=== PATIENT | male | born 1955 | race Caucasian/White ===

== ENCOUNTER 2021-09-10 13:15 | Outpatient (CLI) | payer MEDICARE, OTHER, SELFPAY ==
--- NOTE | ~2021-09-10 | XR_ITS ---
EXAMINATION: XR wrist RT min 3V DATE: 09/10/2021 14:01 INDICATION: Right wrist pain. TECHNIQUE: 4 views of right wrist were obtained. COMPARISON: Right wrist radiographs 01/19/2014 FINDINGS: Bone alignment is normal. No fracture. There is severe osteoarthritis of triscaphe joint an d moderate osteoarthritis of first carpometacarpal joint and lunate-capitate joint. There is a loose body in first carpometacarpal joint. IMPRESSION: 1. Polyarticular osteoarthritis. 2. Loose body in first carpometacarpal joint. Reviewed, dictated and finalized at location A. E CARE OCCUPATIONAL THERAPIST
--- NOTE | ~2021-09-10 | XR_ITS ---
XR wrist LT min 3V DATE: 09/10/2021 14:00 INDICATION: Bilateral wrist pain, weakness, poor regulatory assistant TECHNIQUE: 4 views COMPARISON: 01/19/2014 left breast FINDINGS: There is prominent osteoarthritic change at the triscaphe and first carpometacarpal joint. Chondrocalcinosis at the triangular cartilage and wrist. No fracture or dislocation. IMPRESSION: Prominent osteoarthritis at the triscaphe and first carpometacarpal joints Chondrocalcinosis Reviewed, dictated and finalized at location A. SITE COORDINATOR
--- NOTE | ~2021-09-10 | XR_ITS ---
XR chest 2V DATE: 09/10/2021 14:01 INDICATION: Cough and phlegm production for one year. Ex-smoker for 3 years. COPD. TECHNIQUE: 2 views COMPARISON: 09/04/2011 2 view chest FINDINGS: Normal heart size. No hilar or mediastinal enlargement. There is mild aortic tortuosity. Bilateral hyperinflation consistent with COPD. No pulmonary infiltrate or consolidation, pleural effusion or pulmonary vascular congestion or pneumo thorax. Diffuse osteopenia. IMPRESSION: COPD No active cardiopulmonary disease Reviewed, dictated and finalized at location A. YL BLENDER OPERATOR
== END 2021-09-10 13:16 | disposition home or self-care (01) ==
PROVIDERS: PCP Family Medicine; Visit Provider Family Medicine
DX: G62.9 Polyneuropathy, unspecified (principal); M25.532 Pain in left wrist; M25.531 Pain in right wrist; G56.22 Lesion of ulnar nerve, left upper limb; R05.9 Cough, unspecified
CPT/HCPCS: 71046; 73110

== ENCOUNTER 2021-10-03 10:30 | Outpatient (CLI) | payer MEDICARE, OTHER, SELFPAY | END 2021-10-03 10:31 | disposition home or self-care (01) | LOC: CHSCARD 10:32 | PROVIDERS: PCP Family Medicine; Visit Provider Family Medicine | DX: J44.9 Chronic obstructive pulmonary disease, unspecified (principal) | CPT/HCPCS: 94060; 94726; 94729 ==

== ENCOUNTER 2021-10-20 12:30 | Outpatient (CLI) | payer MEDICARE, SELFPAY ==
[2021-10-20 14:12] LABS: SARS-CoV-2 RNA PCR Negative (Negative)
== END 2021-10-20 12:31 | disposition home or self-care (01) ==
LOC: CHSLAB 12:32
PROVIDERS: PCP Family Medicine; Visit Provider Family Medicine
DX: Z20.822 Contact with and (suspected) exposure to COVID-19 (principal)
CPT/HCPCS: C9803; U0003; U0005

== ENCOUNTER 2022-01-20 10:09 | Outpatient (CLI) | payer MEDICARE, OTHER, SELFPAY | END 2022-01-20 10:10 | disposition home or self-care (01) | LOC: CHSOUTPT 10:12 | PROVIDERS: PCP Family Medicine; Visit Provider Specialist | DX: L28.1 Prurigo nodularis (principal) | CPT/HCPCS: 88305 ==

== ENCOUNTER 2022-06-02 20:12 | Emergency (ER) | payer MEDICARE, OTHER, SELFPAY ==
[2022-06-02 20:20] VITALS: BP 156/108; PULSE 77; RESP 20; TEMP 37; O2SAT 96
--- NOTE | 2022-06-02 20:24 | ED.EXTPRO ---
HPI - Extremity Problem General Chief complaint: Extremity Problem,Nontraumatic Stated complaint: Right hand swelling and pain Time Seen by Provider: 06/02/22 20:24 Source: patient and RN notes reviewed Mode of arrival: ambulatory Limitations: no limitations History of Present Illness HPI Narrative: patient states that he woke up this morning with swelling of his right hand on the posterior dorsal aspect just distal to the wrist joint. He says this happened in the past and he went to the doctor and got a shot but he does not know what kind. He has been doing ice and heat today. He states that it is not gout peer he took some tramadol that was from 2018 and he said it did not help. Complaint: extremity pain and extremity swelling Onset (ago): hour(s) (12) Pain Consistency: constant Location: right and upper extremity (Hand) Severity scale (1-10): 10 Quality: aching and dull Radiation: none Relieving factors: nothing Exacerbating factors: range of motion and palpation Associated symptoms: denies other symptoms Related Data Home Medications Medication Instructions Recorded Confirmed omeprazole 20 mg capsule,delayed 20 mg PO DAILY 06/02/22 06/02/22 release valsartan 160 mg tablet 160 mg PO BID 06/02/22 06/02/22 verapamil 120 mg tablet,extended 120 mg PO HS 06/02/22 06/02/22 release Allergies Allergy/AdvReac Type Severity Reaction Status Date / Time No Known Allergies Allergy Unknown Verified 01/12/22 09:07 Review of Systems Review of Systems: All systems reviewed & are unremarkable except as noted in HPI and below PMFSH Past Medical History Medical History (Updated 06/03/22 @ 00:00 by Viola Tolliver) History of MRSA infection Osteoarthritis of CMC joint of thumb Surgical History Surgical History H/O hand surgery Bilateral CMC arthroplasties Social History Social History Smoking packs per day: 3 Smoking cigarettes per day: 60.0 Years smoked: 33 Smoking pack-years: 99.00 Smoking status: Current some day smoker Alcohol intake: current Drinks per week: 60 Substance use: current Substance use type: marijuana Additional occupation/education comments: [employer] Gender identity (if verbalized by the patient): Male Exam Const: General: healthy appearing, no acute distress and alert Nutritional Appearance: well nourished Orientation/consciousness: patient oriented x3 Limitations: no limitations HENMT: Head: normal to inspection Ears: external ears normal Eyes: Conjunctivae: conjunctivae normal Pupils: Equal, round and reactive pupils present EOM: EOMs intact bilaterally Neck: Neck: normal visual inspection Resp: Effort & Inspection: normal respiratory effort Auscultation: clear to auscultation bilaterally Cardio: Rate: regular rate Rhythm: regular rhythm GI: GI Palp: Yes Soft to palpation and No Tenderness to palpation present (GI) Auscultation: normal bowel sounds Back/Spine/Pelvis: Cervical Spine: cervical ROM normal Thoracic/Lumbar Spine: thoraco-lumbar ROM normal Skin: General skin exam: normal color Rashes: no rashes Neuro: General: patient oriented x3, moves all extremities, no focal motor deficits and CN's II-XI intact bilaterally Speech: normal speech Gait exam (Neuro): Normal gait present Extrem: General: normal exam except as noted Right upper extremity: Extremity exam: right hand abnormal to inspection joint swelling, tenderness of the dorsal hand proximally, warmth of the dorsal hand proximally and swelling of the dorsal hand proximally Psych: Mental Status: mental status grossly normal Affect: normal affect Attitude: cooperative Course Vital Signs Vital signs: Vital Signs Temperature 37.0 C 06/02/22 20:20 Pulse Rate 77 06/02/22 20:20 Respiratory Rate 20 06/02/22 20:20 Blood Pressure 156/108 H 06/02/22 20:20 Pulse O
[2022-06-02] MEDS: KETOROLAC 30 MG/ML VIAL (*BKC) IM (20:37)
[2022-06-02 20:42] LABS: Basophils Absolute Auto 0.04 K/mm3 (0.00-0.10); Basophils Percent Auto 0.4 % (0.0-1.0); Eosinophils Absolute Auto 0.07 K/mm3 (0.02-0.50); Eosinophils Percent Auto 0.7 % (1.0-6.0); Hematocrit 41.2 % (37.0-46.0); Hemoglobin 14.4 g/dL (12.4-15.3); Immature Granulocyte Absolute 0.03 K/mm3 (0.00-0.00); Immature Granulocyte Percent A 0.3 % (0.0-0.0); Lymphocytes Absolute Auto 0.97 K/mm3 (1.10-4.50); Lymphocytes Percent Auto 10.3 % (18.0-42.0); Mean Corpuscular Hemoglobin 32.9 pg (27.0-31.0); Mean Corpuscular Volume 94.1 fL (78.0-102.0); Mean Platelet Volume 9.2 fl (8.7-11.0); Monocytes Absolute Auto 0.77 K/mm3 (0.10-0.90); Monocytes Percent Auto 8.1 % (2.0-11.0); Neutrophils Absolute Auto 7.6 K/mm3 (1.7-7.2); Neutrophils Percent Auto 80.2 % (50.0-70.0); Platelet Count Result 177 K/mm3 (150-420); Red Blood Count 4.38 M/mm3 (4.70-6.10); Red Cell Distribution Width 12.4 % (11.6-14.4); White Blood Count 9.5 K/mm3 (4.8-10.8)
[2022-06-02 20:55] LABS: Anion Gap 12 mmol/L (8-16); Blood Urea Nitrogen 13 mg/dL (7-18); Calcium 9.2 mg/dL (8.5-10.1); Carbon Dioxide 23 mmol/L (21-32); Chloride 100 mmol/L (98-108); Estimated CRCL calculation 69 ml/min; Estimated Glomerular Filt Rate > 60; Glucose 141 mg/dL (70-99); Osmolality Calculated 282 mOsm/kg (285-295); Potassium 3.8 mmol/L (3.5-5.1); Sodium 135 mmol/L (136-145); Uric Acid 7.9 mg/dL (3.5-7.2)
[2022-06-02 20:56] LABS: CRP 0.5 mg/dL (0.0-0.9)
[2022-06-02 21:04] VITALS: BP 144/98; PULSE 87; RESP 18; O2SAT 97
== END 2022-06-02 21:14 | disposition home or self-care (01) ==
PROVIDERS: Emergency Provider Emergency Medicine; PCP Family Medicine
DX: M10.9 Gout, unspecified (principal)
CPT/HCPCS: 36415; 80048; 84550; 85025; 86140; 96372; 99283; J1885

== ENCOUNTER 2022-09-20 15:19 | Emergency (ER) | payer MEDICARE, OTHER, SELFPAY ==
--- NOTE | ~2022-09-20 | CT_ITS ---
EXAMINATION: CT brain wo con DATE: 09/20/2022 16:04 INDICATION: Fall 4 days ago . TECHNIQUE: Computed tomography (CT) of the head was performed without intravenous contrast. The mA wa s adjusted according to patient size. Iterative reconstruction technique was employed. The dose-lengt h product was 681.00 mGy-cm. COMPARISON: 07/06/2019 FINDINGS: No acute intracranial hemorrhage or extra-axial fluid collection. No hydrocephalus, mass, or herniation. No acute ischemic infarct. Unremarkable dural venous sinus attenuation. No acute osseous abnormality. Prior right mastoidectomy. Mucosal thickening, dependent fluid, and aerated secretions in the left sphenoid sinus. The remaining aerated spaces are clear. Minimal bilateral basal ganglia calcification. IMPRESSION: No acute intracranial process. CT findings suggestive of chronic sphenoid sinusitis. Reviewed, dictated and finalized at location K. UTER MECHANIC IMPRESSION: No acute intracranial process. CT findings suggestive of chronic sphenoid sinus itis.
--- NOTE | ~2022-09-20 | CT_ITS ---
EXAMINATION: CT cervical spine wo con DATE: 09/20/2022 16:05 INDICATION: Fall 4 days ago TECHNIQUE: Computed tomography (CT) of the cervical spine was performed without intravenous contrast. Automated exposure control and iterative reconstruction technique were employed. The dose-length pro duct was 382.96 mGy-cm. COMPARISON: X-ray C-spine 08/10/2018 FINDINGS: Vertebral Body Alignment: Intact. Reversed lordosis centered at C5. Multilevel minimal grade 1 debbie listheses, stable. Craniocervical and atlantoaxial alignment: Moderate degenerative change. Alignment intact. Osseous structures/fracture: No evidence of a lytic or blastic process in the visualized spine. No e vidence of acute fracture. Chronic findings in the left sphenoid sinus. Mild mucosal thickening in th e inferior bilateral maxillary sinuses. Cervical soft tissues: The paraspinal soft tissues planes are maintained. Degenerative changes: Multilevel severe facet arthropathy and degenerative disc disease. Multilevel m oderate central canal narrowing. Severe right neural foraminal narrowing at C5-6. Severe left neural foraminal narrowing at C6-7 and C7-T1. IMPRESSION: No acute fracture or traumatic malalignment in the cervical spine. Reviewed, dictated and finalized at location K. ER FILLER
--- NOTE | 2022-09-20 15:23 | ED.FALL ---
HPI - Fall General Chief Complaint: Head Injury Stated Complaint: Wed hit head;pain in eye, pain in head Time Seen by Provider: 09/20/22 15:22 Source: patient and RN notes reviewed Mode of arrival: ambulatory Limitations: no limitations History of Present Illness HPI Narrative: Patient states that he slipped in the bathroom fell backwards and thinks he hit his head against the wall or the door. Had no LOC. He said that his neck seemed to hurt and got worse so he went to other local chiropractor who tried to do some adjustments on his neck. He said his neck felt better for a little while just a couple of hours and then it began to hurt and then this morning he is unable to move his neck. He denies any numbness or tingling in his lower extremities. MD complaint: fall Onset (ago): day(s) (4) Fall from: standing Fall witnessed: no Place fall occurred: home Loss of consciousness: none Prolonged down time: no Symptoms prior to fall: none Context: tripped/slipped Location of injury: neck Severity: severe Quality: stabbing and aching Associated symptoms (after fall): neck pain Related Data Home Medications Medication Instructions Recorded Confirmed omeprazole 20 mg capsule,delayed 20 mg PO DAILY 06/02/22 09/20/22 release valsartan 160 mg tablet 160 mg PO BID 06/02/22 09/20/22 verapamil 120 mg tablet,extended 120 mg PO HS 06/02/22 09/20/22 release allopurinol 100 mg tablet 100 mg PO DAILY 09/20/22 09/20/22 Allergies Allergy/AdvReac Type Severity Reaction Status Date / Time No Known Allergies Allergy Unknown Verified 09/20/22 15:42 Review of Systems Review of Systems: All systems reviewed & are unremarkable except as noted in HPI and below PMFSH Past Medical History Medical History History of MRSA infection Osteoarthritis of CMC joint of thumb Surgical History Surgical History H/O hand surgery Bilateral CMC arthroplasties Social History Social History Smoking packs per day: 3 Smoking cigarettes per day: 60.0 Years smoked: 33 Smoking pack-years: 99.00 Smoking status: Former smoker Alcohol intake: current Drinks per week: 60 Substance use: current Substance use type: marijuana Additional occupation/education comments: [employer] Gender identity (if verbalized by the patient): Male Exam Const: General: healthy appearing, no acute distress and alert Nutritional Appearance: well nourished Orientation/consciousness: patient oriented x3 Limitations: no limitations HENMT: Head: normal to inspection and no contusions Ears: external ears normal Eyes: Conjunctivae: conjunctivae normal Pupils: Equal, round and reactive pupils present EOM: EOMs intact bilaterally Neck: Neck: normal visual inspection Resp: Effort & Inspection: normal respiratory effort Auscultation: clear to auscultation bilaterally Cardio: Rate: regular rate Rhythm: regular rhythm GI: GI Palp: Yes Soft to palpation and No Tenderness to palpation present (GI) Auscultation: normal bowel sounds Skin: General skin exam: normal color Rashes: no rashes Neuro: General: patient oriented x3, moves all extremities, no focal motor deficits and CN's II-XI intact bilaterally Speech: normal speech Gait exam (Neuro): Normal gait present Deep tendon reflexes (DTR's): Rt Biceps (C5, C6): 2+, Left biceps reflex intensity grade: 2+, Right brachioradialis reflex intensity grade: 2+ and Left brachioradialis reflex intensity grade: 2+ Extrem: General: normal to inspection and no clubbing, cyanosis or edema Psych: Mental Status: mental status grossly normal Affect: normal affect Attitude: cooperative Course Vital Signs Vital signs: Vital Signs Temperature 36.9 C 09/20/22 15:38 Pulse Rate 89 09/20/22 15:38 Respiratory Rate 16 09/20/22 15:38 Blood
[2022-09-20 15:38] VITALS: BP 153/97; PULSE 89; RESP 16; TEMP 36.9; O2SAT 97
--- NOTE | 2022-09-20 15:43 | PC.NURSE ---
patient denies loss of bowel or bladder control.
[2022-09-20] MEDS: KETOROLAC 30 MG/ML VIAL (*BKC) IM (16:24)
[2022-09-20] MEDS: ORPHENADRINE CITRATE 30 MG/ML 2 ML VIAL 60 MG IM (16:31)
[2022-09-20 16:40] VITALS: BP 149/82; PULSE 85; RESP 18; TEMP 36.8; O2SAT 100
== END 2022-09-20 16:42 | disposition home or self-care (01) ==
PROVIDERS: Emergency Provider Emergency Medicine; PCP Family Medicine
DX: M62.838 Other muscle spasm (principal); S16.1XXA Strain of muscle, fascia and tendon at neck level, initial encounter; W19.XXXA Unspecified fall, initial encounter; Z87.891 Personal history of nicotine dependence
CPT/HCPCS: 70450; 72125; 96372; 99284; J1885; J2360; L0150

== ENCOUNTER 2022-12-09 10:36 | Outpatient (CLI) | payer MEDICARE, SELFPAY ==
--- NOTE | ~2022-12-09 | XR_ITS ---
EXAMINATION: XR abdomen obstructive series DATE: 12/09/2022 11:02 INDICATION: Diarrhea for 4-5 months TECHNIQUE: Supine and upright views of the abdomen. FINDINGS: No prior studies for comparison. The visualized lung parenchyma is normal.. There is a nonobstructive bowel gas pattern. Moderate colo selene fecal loading. Gas and stool are seen throughout the colon to the level of the rectum. There is no free air. IMPRESSION: 1. No acute abdominal abnormality. Reviewed, dictated and finalized at location A. MANAGER CPA
== END 2022-12-09 10:37 | disposition home or self-care (01) ==
LOC: CHSIMG 10:39
PROVIDERS: PCP Family Medicine; Visit Provider Family Medicine
DX: R19.7 Diarrhea, unspecified (principal)
CPT/HCPCS: 74019

== ENCOUNTER 2023-01-04 09:00 | Outpatient (NON) | payer MEDICARE, SELFPAY | END 2023-01-04 09:01 | disposition home or self-care (01) | PROVIDERS: PCP Family Medicine; Visit Provider Internal Medicine Gastroenterology | DX: D36.7 Benign neoplasm of other specified sites (principal); Z86.010 Personal history of colon polyps | CPT/HCPCS: 88305 ==

== ENCOUNTER 2023-09-07 13:09 | Outpatient (CLI) | payer MEDICARE, OTHER, SELFPAY ==
--- NOTE | ~2023-09-07 | XR_ITS ---
Left Knee Technique: AP, lateral, and sunrise views were obtained. Clinical History: Pain Findings: No fracture or dislocation is seen. Left knee arthroplasty hardware is in place. No hardwar e complication seen. Soft tissues are unremarkable. No joint effusion is seen. Impression: No acute abnormality. Left knee arthroplasty in place. Reviewed, dictated and finalized at location . DBAND ENGINEER Impression: No acute abnormality. Left knee arthroplasty in place.
[2023-09-07 13:30] LABS: Basophils Absolute Auto 0.05 K/mm3 (0.00-0.10); Basophils Percent Auto 0.8 % (0.0-1.0); Eosinophils Absolute Auto 0.07 K/mm3 (0.02-0.50); Eosinophils Percent Auto 1.1 % (1.0-6.0); Hematocrit 42.4 % (37.0-46.0); Hemoglobin 14.6 g/dL (12.4-15.3); Immature Granulocyte Absolute 0.01 K/mm3 (0.00-0.00); Immature Granulocyte Percent A 0.2 % (0.0-0.0); Lymphocytes Absolute Auto 1.39 K/mm3 (1.10-4.50); Lymphocytes Percent Auto 21.2 % (18.0-42.0); Mean Corpuscular HGB Conc 34.4 g/dL (32.0-36.0); Mean Corpuscular Hemoglobin 32.3 pg (27.0-31.0); Mean Corpuscular Volume 93.8 fL (78.0-102.0); Mean Platelet Volume 9.6 fl (8.7-11.0); Monocytes Absolute Auto 0.41 K/mm3 (0.10-0.90); Monocytes Percent Auto 6.3 % (2.0-11.0); Neutrophils Absolute Auto 4.6 K/mm3 (1.7-7.2); Neutrophils Percent Auto 70.4 % (50.0-70.0); Platelet Count Result 180 K/mm3 (150-420); Red Blood Count 4.52 M/mm3 (4.70-6.10); Red Cell Distribution Width 11.9 % (11.6-14.4); White Blood Count 6.6 K/mm3 (4.8-10.8)
[2023-09-07 13:58] LABS: Alanine Aminotransferase 32 U/L (16-63); Albumin Level 3.9 g/dL (3.4-5.0); Alkaline Phosphatase 79 U/L (46-116); Anion Gap 11 mmol/L (8-16); Aspartate Amino Transferase 21 U/L (15-37); Bilirubin,Total 0.6 mg/dL (0.00-1.00); Blood Urea Nitrogen 13 mg/dL (7-18); Calcium 8.9 mg/dL (8.5-10.1); Carbon Dioxide 24 mmol/L (21-32); Chloride 101 mmol/L (98-108); Estimated Glomerular Filt Rate > 60; Glucose 128 mg/dL (70-99); Osmolality Calculated 284 mOsm/kg (285-295); Potassium 3.9 mmol/L (3.5-5.1); Sodium 136 mmol/L (136-145); Thyroid Stimulating Hormone 1.48 uIU/mL (0.36-3.74); Total Protein 6.9 g/dL (6.4-8.2); Uric Acid 5.8 mg/dL (3.5-7.2)
== END 2023-09-07 13:10 | disposition home or self-care (01) ==
LOC: CHSLAB 13:13
PROVIDERS: PCP Family Medicine; Visit Provider Family Medicine
DX: I10 Essential (primary) hypertension (principal); M10.00 Idiopathic gout, unspecified site; M25.562 Pain in left knee; Z96.652 Presence of left artificial knee joint
CPT/HCPCS: 36415; 73562; 80053; 84443; 84550; 85025

== ENCOUNTER 2023-09-26 09:10 | Emergency (ER) | payer MEDICARE, SELFPAY ==
[2023-09-26 09:10] VITALS: BP 160/93; PULSE 83; RESP 18; TEMP 36.1; O2SAT 97
--- NOTE | 2023-09-26 09:17 | ED.GENADULT ---
HPI - General Adult General Chief complaint: Extremity Problem,Nontraumatic Stated complaint: pain in hand Time Seen by Provider: 09/26/23 09:14 History of Present Illness HPI narrative: Chong is a 68M with a pmh of HTN, hearing loss, OA, and gout that presented to the ED with pain all throughout his right hand. There was no trauma or injury. He states that it feels like previous episodes of gout. No fevers, chills, N/V or systemic symptoms reported. Related Data Home Medications Medication Instructions Recorded Confirmed omeprazole 20 mg capsule,delayed 20 mg PO DAILY 06/02/22 01/04/23 release verapamil 120 mg tablet,extended 120 mg PO HS 06/02/22 01/04/23 release allopurinol 100 mg tablet 100 mg PO DAILY 09/20/22 01/04/23 Allergies Allergy/AdvReac Type Severity Reaction Status Date / Time No Known Allergies Allergy Unknown Verified 05/03/23 08:46 Review of Systems Review of Systems: All systems reviewed & are unremarkable except as noted in HPI and below PMFSH Past Medical History Medical History ETOH abuse History of MRSA infection HTN (hypertension) Osteoarthritis of CMC joint of thumb Surgical History Surgical History H/O hand surgery Bilateral CMC arthroplasties Social History Social History Smoking packs per day: 3 Smoking cigarettes per day: 60.0 Years smoked: 33 Smoking pack-years: 99.00 Smoking status: Never smoker Alcohol intake: current Drinks per week: 60 Alcohol use details: pt states daily drinking Substance use: current Substance use type: marijuana Other substance usage details: daily Lack of Transportation: No Lack of Food: Never True Current Housing: Decline to Answer Concerned About Future Housing: Decline to Answer Difficulty Paying Gas/Electric Bills: Decline to Answer Difficulty Paying for Meds: Decline to Answer Currently Unemployed: Decline to Answer Education: Decline to Answer Difficulty w/ Childcare or Family Care: Decline to Answer Living arrangements: with family Occupation/Education: occupation Additional occupation/education comments: [employer] Gender identity (if verbalized by the patient): Male Spiritual care concerns: No Exam Const: General: cooperative, healthy appearing, comfortable, no acute distress, well developed, alert, awake and Physically active Orientation/consciousness: oriented to person, oriented to place and oriented to time HENMT: Head: normal to inspection, normocephalic and atraumatic Ears: hearing grossly normal bilaterally and external ears normal Face/Nose/Sinus: Normal external nose present Eyes: General: appearance normal, both eyes and all related structures Periorbital: periorbital findings normal Sclera: sclerae normal Pupils: Equal, round and reactive pupils present Neck: Neck: normal visual inspection Chest: Chest palpation & inspection: normal inspection of the chest Resp: Effort & Inspection: normal respiratory effort, able to speak in complete sentences and no respiratory distress Cardio: Jugular venous distension: no JVD Skin: General skin exam: normal color and no rashes or lesions noted Neuro: General: oriented to person, oriented to place and oriented to time Cranial nerves: Yes Equal, round and reactive pupils present Extrem: General: normal to inspection Other: right hand was very TTP Course Course Emergency Course: ordered Toradol and colchicine Discharge Plan Discharge Clinical Impression: Gout Patient Disposition: Home, Self-Care Condition: Stable Instructions: Gout (ED) Prescriptions: New meloxicam 15 mg tablet 15 mg PO DAILY Qty: 10 0RF No Action verapamil 120 mg tablet extended release 120 mg PO HS omeprazole 20 mg capsule,delayed release(D
[2023-09-26] MEDS: KETOROLAC 30 MG/ML VIAL (*BKC) IM (09:39)
[2023-09-26] MEDS: COLCHICINE 0.6 MG TABLET PO (09:48)
== END 2023-09-26 10:01 | disposition home or self-care (01) ==
PROVIDERS: Emergency Provider Family Medicine; PCP Family Medicine
DX: M10.9 Gout, unspecified (principal); I10 Essential (primary) hypertension; F17.210 Nicotine dependence, cigarettes, uncomplicated
CPT/HCPCS: 96372; 99283; A9270; J1885

== ENCOUNTER 2024-02-16 10:06 | Outpatient (CLI) | payer MEDICARE, SELFPAY ==
--- NOTE | ~2024-02-16 | XR_ITS ---
EXAMINATION: XR_CERV2-3V_CR DATE: 02/16/2024 10:25 INDICATION: Neck pain. Fall. TECHNIQUE: 3 views of cervical spine were obtained. COMPARISON: Cervical spine radiographs 08/10/2018 FINDINGS: There is 2 mm retrolisthesis of C5 on C6 and C6 on C7. There is 6 degrees dextrocurvature o f cervical spine. Vertebral body heights are normal. There is severely decreased disc height at C5-C6 and C6-C7. There is multilevel uncovertebral joint osteoarthritis, severe bilaterally at C5-C6 and C 6-C7. There is multilevel facet joint osteoarthritis, severe on the right at C4-C5. There is mild cecilia tral canal stenosis at C3-C4, C4-C5, C5-C6, and C6-C7. No prevertebral soft tissue swelling. IMPRESSION: 1. Stable severe cervical spondylosis. Reviewed, dictated and finalized at location E.
== END 2024-02-16 10:07 | disposition home or self-care (01) ==
LOC: CHSIMG 10:08
PROVIDERS: PCP Family Medicine; Visit Provider Family Medicine
DX: M54.2 Cervicalgia (principal); M43.02 Spondylolysis, cervical region
CPT/HCPCS: 72040

== ENCOUNTER 2024-02-26 09:06 | Outpatient (CLI) | payer MEDICARE, SELFPAY ==
--- NOTE | ~2024-02-26 | MR_ITS ---
EXAMINATION: MR cervical spine wo con DATE: 02/26/2024 10:08 INDICATION: Neck pain. TECHNIQUE: Magnetic resonance imaging (MRI) of the cervical spine was performed without intravenous c ontrast. Sequences included sagittal T2-weighted FSE, sagittal T2-weighted FS FSE, sagittal T1-weight ed FSE, axial MERGE, and axial T2-weighted FSE. COMPARISON: Cervical spine radiographs 02/16/2024 FINDINGS: There is 2 mm anterolisthesis of C4 on C5 and 2 mm retrolisthesis of C5 on C6 and C6 on C7. There is mild chronic anterior wedging of T1 vertebral body. There is severely decreased disc height at C5-C6 and C6-C7. There is increased T2-weighted signal intensity in the spinal cord at C5-C6, con sistent with myelomalacia. The following disc levels are specifically discussed: C2-C3: The disc does not extend beyond the endplate margin. There is no uncovertebral joint osteoarth ritis. There is severe right and moderate left facet joint osteoarthritis. There is mild bilateral ne ural foraminal stenosis. There is no central canal stenosis. C3-C4: The disc is bulging. There is mild right and moderate left uncovertebral joint osteoarthritis. There is severe bilateral facet joint osteoarthritis. There is mild bilateral neural foraminal steno sis. There is mild central canal stenosis. C4-C5: The disc does not extend beyond the endplate margin. There is mild bilateral uncovertebral mickie nt osteoarthritis. There is severe lateral facet joint osteoarthritis. There is mild right neural for aminal stenosis. There is no central canal stenosis. C5-C6: The disc is bulging. There is severe right and moderate left uncovertebral joint osteoarthriti s. There is moderate bilateral facet joint osteoarthritis. There is moderate right and mild left neur al foraminal stenosis. There is moderate central canal stenosis with ventral and dorsal indentation o f the spinal cord. C6-C7: The disc is bulging. There is severe bilateral uncovertebral joint osteoarthritis. There is se annalisa bilateral facet joint osteoarthritis. There is mild bilateral neural foraminal stenosis. There i s mild central canal stenosis. C7-T1: There is a central protrusion. There is no uncovertebral joint osteoarthritis. There is severe bilateral facet joint osteoarthritis. There is mild bilateral neural foraminal stenosis. There is no central canal stenosis. IMPRESSION: 1. Myelomalacia at C5-C6. 2. Severe cervical spondylosis. Reviewed, dictated and finalized at location A.
== END 2024-02-26 09:07 | disposition home or self-care (01) ==
LOC: CHSIMG 09:08
PROVIDERS: PCP Family Medicine; Visit Provider Family Medicine
DX: M54.2 Cervicalgia (principal); G95.89 Other specified diseases of spinal cord; M43.02 Spondylolysis, cervical region
CPT/HCPCS: 72141

== ENCOUNTER 2024-05-08 08:32 | Outpatient (RCR) | payer MEDICARE, SELFPAY ==
--- NOTE | 2024-05-08 11:35 | OPREHPOC ---
Outpatient Therapy Plan of Care This is a Multidisciplinary Plan of Care that may contain components documented by all disciplines (PT, OT, and ST.) PT Problem 1 PT Problem #1 Knowledge Deficit PT Goal 1 Goal 1. independent and compliant with HEP Target Visit 6 PT Problem 2 PT Problem #2 Impaired Balance PT Goal 1 Goal 1. tinetti to display low fall risk 2. correa to display 45 or better raw score 2. patient to report having no falls outside of therapy for the past 4 weeks Target Visit 12 PT Problem 3 PT Problem #3 Impaired Functional Mobil PT Goal 1 Goal 1. patient to ambulate with normal gait mechanics and no path deviation to improve functional activity performance and safety 2. patient to report no dizziness symptoms with position change 3. patient to report return of confidence walking, standing, and climbing stairs/ladders. Target Visit 12
--- NOTE | 2024-05-08 11:35 | PTOPEVAL1 ---
Assessment and note entered by JT File, PT Evaluation Information Assessment Status Evaluation Diagnosis BPPV ICD-10 Condition Codes (PT) Dizziness & Giddiness R42 Onset 05/04/24 Subjective Information patient reports he is coming to therapy with dizziness. he reports he had a neck injury last year from a fall. he reports he has had head and neck aches for about 6 months or more. he reports he is getting weak in his hands and arms. he reports he is seeing a neurosurgeon in [place]. as for the dizziness, he reports he has vertigo. he reports he has had it 1-2 other times in the past. he reports he feels he can walk, but feels he walks around looking drunk. he reports at times the room feels it is spinning around him. he reports he is dizzy all the time. he reports he is fine when sitting. he reports no trouble reading a book. he reports he is dizzy when standing and walking. he reports he has had imaging of the neck about 1-2 months ago. he reports his dizziness symptoms have been going on for 5-6 weeks. Reported Pain Level Pain Score 2: Self Report Assessment PT Clinical Summary mr. spencer is a 68 yo man who presents to skilled PT services for evaluation and treatment of BPPV. patient is negative for dana meeahn pike bilaterally, and his subjective symptoms/objective deficits are inconsistent with BPPV. however, he does display deficits in gait, balance, proprioception, and righting reactions today. his MRI does show myelomalacia of C5-6 and severe cervical spondylosis. he was also positive for orthostatic hypotension when transitioning from supine to sitting. he would benefit from continued skilled PT to address his objective/functional deficits to improve his balance and functional mobility for a better quality of life/safety. his cervical spine would benefit from further evaluation during his care here. Plan of Care Interventions Gait Training,Neuro Re-education,Patient/Caregiver Educati,Therapeutic Activities,Therapeutic Exercise PT Services Indicated Yes Treatment Frequency and 3x weekly for 12 visits Duration These treatments will address the objective and functional deficits as defined above. The patient will be advanced safely and appropriately in order for the patient to progress towards his/her prior level of function. Additional exercises will be int
--- NOTE | 2024-05-31 10:24 | OPREHPOC ---
Outpatient Therapy Plan of Care This is a Multidisciplinary Plan of Care that may contain components documented by all disciplines (PT, OT, and ST.) PT Problem 1 PT Problem #1 Knowledge Deficit PT Goal 1 Goal 1. independent and compliant with HEP Target Visit 6 Progress Met PT Problem 2 PT Problem #2 Impaired Balance PT Goal 1 Goal 1. tinetti to display low fall risk. met 2. correa to display 45 or better raw score 2. patient to report having no falls outside of therapy for the past 4 weeks. met Target Visit 12 Progress Partially Met PT Problem 3 PT Problem #3 Impaired Functional Mobil PT Goal 1 Goal 1. patient to ambulate with normal gait mechanics and no path deviation to improve functional activity performance and safety 2. patient to report no dizziness symptoms with position change. met 3. patient to report return of confidence walking, standing, and climbing stairs/ladders. Target Visit 12 Progress Partially Met
--- NOTE | 2024-05-31 10:24 | PTOPPROGNS ---
Assessment and note entered by JT File, PT Evaluation Information Assessment Status Progress Diagnosis BPPV ICD-10 Condition Codes (PT) Dizziness & Giddiness R42 Onset 05/04/24 Subjective Information patient reports he feels good today. he reports he continues to have neck pain, and has a follow up with the spine surgeon soon. he reports he has not had any falls, and has no dizziness any longer . Assessment PT Clinical Summary mr. spencer presents to skilled PT for his 10th skilled therapy visit today. he presents with improved balance and stability on his feet today. he has had no falls and no more dizziness since his initial evaluation. he has partially met goals for skilled PT thus far, and is progressing towards achievement of remaining skilled PT goals. continued skilled PT is indicated per his initial POC. Plan of Care Interventions Gait Training,Neuro Re-education,Patient/Caregiver Educati,Therapeutic Activities,Therapeutic Exercise PT Services Indicated Yes Treatment Frequency and continue skilled PT per initial POC Duration These treatments will address the objective and functional deficits as defined above. The patient will be advanced safely and appropriately in order for the patient to progress towards his/her prior level of function. Additional exercises will be introduced and as well as a comprehensive home exercise program upon discharge, if needed, ?to ensure carryover of functional gains achieved in the clinic. This treatment plan has been reviewed and agreement upon by the patient.
--- NOTE | 2024-06-06 09:27 | OPREHPOC ---
Outpatient Therapy Plan of Care This is a Multidisciplinary Plan of Care that may contain components documented by all disciplines (PT, OT, and ST.) PT Problem 1 PT Problem #1 Knowledge Deficit PT Goal 1 Goal 1. independent and compliant with HEP Target Visit 6 Progress Met PT Problem 2 PT Problem #2 Impaired Balance PT Goal 1 Goal 1. tinetti to display low fall risk. met 2. correa to display 45 or better raw score. met 2. patient to report having no falls outside of therapy for the past 4 weeks. met Target Visit 12 Progress Met PT Problem 3 PT Problem #3 Impaired Functional Mobil PT Goal 1 Goal 1. patient to ambulate with normal gait mechanics and no path deviation to improve functional activity performance and safety. met 2. patient to report no dizziness symptoms with position change. met 3. patient to report return of confidence walking, standing, and climbing stairs/ladders. met Target Visit 12 Progress Met
--- NOTE | 2024-06-06 09:27 | PTOPDC ---
Assessment and note entered by JT File, PT Evaluation Information Assessment Status Discharge Diagnosis BPPV ICD-10 Condition Codes (PT) Dizziness & Giddiness R42 Onset 05/04/24 Subjective Information patient reports he feels Good today. he reports he continues to have pain in the neck, weakness in the arms, and tingling in the arms. he reports he no longer has dizziness, and his balance is much better. he reports he is meeting with a neck surgeon on of this week. Reported Pain Level Pain Score 4: Self Report Assessment PT Clinical Summary mr. spencer presents to skilled PT services for his 12th skilled PT visit today. as of this date, he has met all goals for his dizziness and giddiness issues. however, he continues to have cervical pain, limited cervical rom, UE weakness, and UE paresthesia's. he presents with improved bilateral needle setter strength, but continued poor cervical posture. he will DC skilled PT today, and continue with exercises of the LE's for strength and balance at home. he will follow up with MD for cervical issues later this week. Plan of Care PT Services Indicated Yes
== END 2024-06-06 20:00 | disposition home or self-care (01) ==
LOC: CHSPT 08:32
PROVIDERS: PCP Family Medicine; Visit Provider Family Medicine
DX: H81.10 Benign paroxysmal vertigo, unspecified ear (principal)
CPT/HCPCS: 97110; 97112; 97140; 97150; 97161; 97530

== ENCOUNTER 2024-06-01 14:08 | Outpatient (CLI) | payer MEDICARE, SELFPAY ==
--- NOTE | 2024-06-01 14:19 | ECHO_ITS ---
Patient Info Name: Chong Boswell Age: 68 years : 1955 Gender: Male Ht: 70 in Wt: 180 lbs BSA: 2.02 m2 HR: 76 bpm BP: 149 / 91 mmHg Technical Quality: Fair Exam Date: 06/01/2024 2:11 PM Exam Location: [facility] Patient Status: Outpatient Admit Date: 06/01/2024 Staff Ordering Physician: Manuelito Sweeney MD Vocational Technical Education Teacher: Darien Buenrostro RDCS Attending Provider: Manuelito Sweeney MD Referring Physician: Zahra NIEVES; Exam Type: CA echo doppler color flow Study Info Indications I10 - Essential (primary) hypertension Complete two-dimensional, color flow and Doppler transthoracic echocardiogram is performed. Summary 1. Complete two-dimensional, color flow and Doppler transthoracic echocardiogram is performed. 2. Left ventricular chamber dimension is normal. 3. Left ventricular systolic function is normal, estimated at 60-65%. 4. The left ventricular diastolic function is grade I diastolic dysfunction. 5. E/e' 10 is mildly elevated. 6. Left atrial chamber dimension is mildly enlarged. 7. There is trace mitral valve regurgitation. 8. There is trace tricuspid valve regurgitation. 9. No pulmonary hypertension, estimated pulmonary arterial systolic pressure is 12 mmHg. Left Ventricle E/e' 10 is mildly elevated. Left ventricular chamber dimension is normal. Left ventricular systolic function is normal, estimated at 60-65%. The left ventricular diastolic function is grade I diastolic dysfunction. Right Ventricle Right ventricular systolic function is normal and with normal TAPSE 2.7 cm. Right ventricular chamber dimension is normal. Left Atria Left atrial chamber dimension is mildly enlarged. Right Atria Right atrial chamber dimension is normal. Aortic Valve The aortic valve is trileaflet. There is no aortic valve stenosis. There is no aortic valve regurgitation. Pulmonic Valve There is no pulmonic regurgitation. Mitral Valve There is no mitral valve stenosis. There is trace mitral valve regurgitation. Tricuspid Valve There is trace tricuspid valve regurgitation. No pulmonary hypertension, estimated pulmonary arterial systolic pressure is 12 mmHg. Pericardium/Pleural There is no pericardial effusion. Inferior Vena Cava Normal inferior vena cava with >50% collapse upon inspiration consistent with normal right atrial pressure, 5 mmHg. Aorta The aortic root size at the sinus of Valsalva is normal. Left Ventricular Outflow Tract Name Value Normal LVOT 2D LVOT Diameter 2.4 cm LVOT Doppler LVOT Peak Velocity 146 cm/s LVOT Peak Gradient 9 mmHg LVOT Mean Gradient 4 mmHg LVOT VTI 23 cm LVOT VTI/AV VTI Ratio 0.9 LVOT Stroke Volume 104 ml Pulmonic Valve Name Value Normal PV Doppler PV Peak Velocity 111 cm/s PV Peak Gradient
== END 2024-06-01 14:09 | disposition home or self-care (01) ==
LOC: CHSIMG 14:09
PROVIDERS: PCP Family Medicine; Visit Provider Family Medicine
DX: I10 Essential (primary) hypertension (principal)
CPT/HCPCS: 93306

== ENCOUNTER 2024-06-28 10:00 | Outpatient (CLI) | payer MEDICARE, SELFPAY ==
--- NOTE | 2024-06-28 10:29 | ECG_ITS ---
Test Date: 2024-06-28 10:37:36 Measurements Intervals [place] Rate: 66 P: 55 SC: 198 QRS: 10 QRSD: 110 T: 48 QT: 393 QTc: 413 Interpretive Statements SINUS RHYTHM INCOMPLETE RIGHT BUNDLE BRANCH BLOCK BORDERLINE ECG No previous ECG available for comparison Electronically Signed On 06-28-2024 11:15:12 CDT by Shree Paula D.O.
[2024-06-28 10:30] LABS: Add Urine Microscopic? YES; Appearance Urine Clear (Clear); Basophils Absolute Auto 0.06 K/mm3 (0.00-0.10); Basophils Percent Auto 1.2 % (0.0-1.0); Bilirubin Urine Negative (Negative); Blood Urine Negative (Negative); Color Urine Light Yellow (Yellow); Eosinophils Absolute Auto 0.05 K/mm3 (0.02-0.50); Glucose Urine UA Negative (Negative); Hematocrit 41.1 % (37.0-46.0); Hemoglobin 14.6 g/dL (12.4-15.3); Immature Granulocyte Absolute 0.02 K/mm3 (0.00-0.00); Immature Granulocyte Percent A 0.4 % (0.0-0.0); Ketones Urine Negative (Negative); Leukocyte Esterase Ur Trace LEU/UL (Negative); Lymphocytes Absolute Auto 0.89 K/mm3 (1.10-4.50); Lymphocytes Percent Auto 17.3 % (18.0-42.0); Mean Corpuscular HGB Conc 35.5 g/dL (32-36); Mean Corpuscular Hemoglobin 33.1 pg (27.0-31.0); Mean Corpuscular Volume 93.2 fL (78.0-102.0); Monocytes Absolute Auto 0.41 K/mm3 (0.10-0.90); Neutrophils Percent Auto 72.1 % (50.0-70.0); Nitrate Urine Negative (Negative); Platelet Count Result 164 K/mm3 (150-420); Protein Urine Negative (Negative); Red Blood Count 4.41 M/mm3 (4.70-6.10); Urobilinogen Urine 0.2 mg/dL (0.2-1.0); White Blood Count 5.1 K/mm3 (4.8-10.8)
[2024-06-28 10:34] LABS: Bacteria Urine Rare /hpf; RBC Urine None seen /hpf (0-2); WBC Urine None seen /hpf (0-3)
[2024-06-28 10:44] LABS: Partial Thromboplastin Time 27.3 Sec (23.9-30.70)
[2024-06-29 17:29] LABS: Anion Gap 13 mmol/L (4-12); Blood Urea Nitrogen 7 mg/dL (7-18); Carbon Dioxide 21 mmol/L (21-32); Chloride 98 mmol/L (98-108); Estimated Glomerular Filt Rate > 60; Glucose 112 mg/dL (70-99); Osmolality Calculated 273 mOsm/kg (285-295); Potassium 4.2 mmol/L (3.5-5.1); Sodium 132 mmol/L (136-145)
== END 2024-06-28 10:01 | disposition home or self-care (01) ==
PROVIDERS: PCP Family Medicine; Visit Provider Neurological Surgery
DX: Z01.818 Encounter for other preprocedural examination (principal); I45.19 Other right bundle-branch block
CPT/HCPCS: 36415; 80048; 81001; 85025; 85610; 85730; 93005

== ENCOUNTER 2024-08-22 12:57 | Outpatient (RCR) | payer MEDICARE, SELFPAY ==
--- NOTE | 2024-08-22 14:09 | PTOPEVAL1 ---
Assessment and note entered by Darya Ta DPT Evaluation Information Assessment Status Evaluation Diagnosis neck pain Other ICD-10 Condition Codes ( Z98.1, M48.02 PT) Onset 07/30/24 Subjective Information Patient reports 8 weeks ago he under a cervical fusion. He reports since he has noticed a decrease in headaches but continues to have pain. He reports that feeling in his hands is slowly coming back. He reports he is now retired. 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 He reports he has a 25# lifting restriction. He reports he was never in a brace. He reports difficulty turning his head to drive, read, and performing heavy house hold tasks . He returns to MD in Oct 2024. Reported Pain Level Pain Score 1: Self Report Assessment PT Clinical Summary Mr. oBswell is a 69 year old male who presents to PT s/p cervical fusion. He demonstrates increased neck pain, decreased active cervical rotation and impaired posture impairing his ability to drive, look down to read and perform heavy house hold tasks. He would benefit from skilled PT to address impairments and return to OF. Plan of Care Interventions Electrical Stimulation,Hot Pack/Cold Pack,Manual Therapy,Mechanical Traction,Neuro Re-education, Patient/Caregiver Educati,Therapeutic Activities, Therapeutic Exercise PT Services Indicated Yes Treatment Frequency and 2x weekly for 16 weeks Duration These treatments will address the objective and functional deficits as defined above. The patient will be advanced safely and appropriately in order for the patient to progress towards his/her prior level of function. Additional exercises will be introduced and as well as a comprehensive home exercise program upon discharge, if needed, ?to ensure carryover of functional gains achieved in the clinic. This treatment plan has been reviewed and agreement upon by the patient.
--- NOTE | 2024-08-22 14:09 | PTOPEVAL1 ---
Assessment and note entered by Darya Ta DPT Evaluation Information Assessment Status Evaluation Diagnosis neck pain Other ICD-10 Condition Codes ( Z98.1, M48.02 PT) Onset 07/30/24 Subjective Information Patient reports 8 weeks ago he under a cervical fusion. He reports since he has noticed a decrease in headaches but continues to have pain. He reports that feeling in his hands is slowly coming back. He reports he is now retired. 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 He reports he has a 25# lifting restriction. He reports he was never in a brace. He reports difficulty turning his head to drive, read, and performing heavy house hold tasks . He returns to [place] in Oct 2024. Reported Pain Level Pain Score 1: Self Report Assessment PT Clinical Summary Mr. Boswell is a 69 year old male who presents to PT s/p cervical fusion. He demonstrates increased neck pain, decreased active cervical rotation and impaired posture impairing his ability to drive, look down to read and perform heavy house hold tasks. He would benefit from skilled PT to address impairments and return to OF. Plan of Care Interventions Electrical Stimulation,Hot Pack/Cold Pack,Manual Therapy,Mechanical Traction,Neuro Re-education, Patient/Caregiver Educati,Therapeutic Activities, Therapeutic Exercise PT Services Indicated Yes Treatment Frequency and 2x weekly for 16 visits Duration These treatments will address the objective and functional deficits as defined above. The patient will be advanced safely and appropriately in order for the patient to progress towards his/her prior level of function. Additional exercises will be introduced and as well as a comprehensive home exercise program upon discharge, if needed, ?to ensure carryover of functional gains achieved in the clinic. This treatment plan has been reviewed and agreement upon by the patient.
--- NOTE | 2024-08-24 13:54 | PCPTNOTE ---
No call no show.
--- NOTE | 2024-09-25 08:43 | PTOPPROG ---
Assessment and note entered by Lux Prado Evaluation Information Assessment Status Progress Diagnosis neck pain Other ICD-10 Condition Codes ( Z98.1, M48.02 PT) Onset 07/30/24 Subjective Information Pt. reports that overall he is doing better. He states that he is having less intense pain. He still notes some stiffness with described cervical rotation. He states that he still notes mild weakness in the upper extremities as well. Assessment PT Clinical Summary Mr. Boswell has attended a total of 10 treatment sessions. Treatment thus far has focused on cervical mobility, pain reduction, postural awareness and strength. He has demonstrated excellent progress towards all goals, however still presents with impaired c-spine mobility and weakness. Continued skilled PT is indicated in order to continue to improve these areas to allow the pt. improved comfort and function with IADL's. Plan of Care Interventions Electrical Stimulation,Hot Pack/Cold Pack,Manual Therapy,Neuro Re-education,Patient/Caregiver Educati,Therapeutic Activities,Therapeutic Exercise PT Services Indicated Yes Treatment Frequency and Continue treatment 2x/week x 6 visits per POC. Duration These treatments will address the objective and functional deficits as defined above. The patient will be advanced safely and appropriately in order for the patient to progress towards his/her prior level of function. Additional exercises will be introduced and as well as a comprehensive home exercise program upon discharge, if needed, ?to ensure carryover of functional gains achieved in the clinic. This treatment plan has been reviewed and agreement upon by the patient.
--- NOTE | 2024-10-16 09:37 | OPREHPOC ---
Outpatient Therapy Plan of Care This is a Multidisciplinary Plan of Care that may contain components documented by all disciplines (PT, OT, and ST.) PT Problem 1 PT Problem #1 Knowledge Deficit PT Goal 1 Goal / Goal Update Patient to demonstrate independence with HEP Target Visit 4 Progress Met PT Problem 2 PT Problem #2 Pain PT Goal 1 Goal / Goal Update 1. patient to report highest pain at 1/10 when performing lifting for house hold tasks Target Visit 16 Progress Met PT Problem 3 PT Problem #3 Impaired Range of Motion PT Goal 1 Goal / Goal Update patient to demonstrate 60 deg of cervical rotation to return to driving at PLOF Target Visit 16 Progress Met PT Problem 4 PT Problem #4 Impaired Strength PT Goal 1 Goal / Goal Update patient to demonstrate 5/5 B UE strength to return to house hold tasks at PLOF Target Visit 16 Progress Met PT Problem 5 PT Problem #5 Impaired Functional Mobility PT Goal 1 Goal / Goal Update 1. patient to report ability to read with no increase in pain 2. patient to improve NDI by 10%. Target Visit 16 Progress Met
--- NOTE | 2024-10-16 09:37 | PTOPDC ---
Assessment and note entered by JT File, PT Evaluation Information Assessment Status Discharge Diagnosis neck pain Other ICD-10 Condition Codes ( Z98.1, M48.02 PT) Onset 07/30/24 Subjective Information patient reports the neck feels great today. he reports the posterior L hip is bothering him still . he reports he does have therabands he intends to take on vacation with him. Reported Pain Level Pain Score 1: Self Report Assessment PT Clinical Summary mr. spencer presents to skilled PT services for his 16th skilled PT visit. he has met all goals for skilled PT of the neck as of this date. he does have some L posterior hip pain that has been flaring up on him. he will DC skilled PT of the neck today, but was advised to see his PCP for an order to treat the lower back and L hip when he returns from his trip. Plan of Care PT Services Indicated Yes
== END 2024-10-16 11:06 | disposition home or self-care (01) ==
LOC: CHSPT 12:57
PROVIDERS: Visit Provider Neurological Surgery
DX: M48.02 Spinal stenosis, cervical region (principal); Z98.1 Arthrodesis status
CPT/HCPCS: 97014; 97110; 97140; 97150; 97161; G0283

== ENCOUNTER 2024-10-13 16:03 | Outpatient (CLI) | payer MEDICARE, SELFPAY ==
--- NOTE | ~2024-10-13 | XR_ITS ---
EXAMINATION: XR lumbar spine 2-3V DATE: 10/13/2024 16:30 INDICATION: Low back pain. TECHNIQUE: 3 views of lumbar spine were obtained. COMPARISON: None. FINDINGS: There is 4 degrees dextrocurvature of thoracic lumbar spine. Vertebral body heights are nor mal. There is mildly decreased disc height at L2-L3 and L3-L4 and moderately decreased disc height at L5-S1. There is multilevel facet joint osteoarthritis, severe in lower lumbar spine. IMPRESSION: 1. Moderate lumbar spondylosis. Reviewed, dictated and finalized at location A. ACTOR FILLER
--- NOTE | ~2024-10-13 | XR_ITS ---
XR hip LT min 2V 10/13/2024 16:30 Indication: Left hip pain Procedure: 2 views left hip Comparison: No prior studies for comparison. Findings: No fracture, subluxation or dislocation. There is mild osteoarthritis of the left hip. No s oft tissue abnormality. Impression: 1: Mild osteoarthritis of the left hip. Reviewed, dictated and finalized at location B. ECTIONS NURSE Impression: 1: Mild osteoarthritis of the left hip.
[2024-10-13 16:40] LABS: Basophils Absolute Auto 0.05 K/mm3 (0.00-0.10); Basophils Percent Auto 0.6 % (0.0-1.0); Eosinophils Absolute Auto 0.06 K/mm3 (0.02-0.50); Eosinophils Percent Auto 0.7 % (1.0-6.0); Hematocrit 40.3 % (37.0-46.0); Hemoglobin 14.4 g/dL (12.4-15.3); Immature Granulocyte Absolute 0.04 K/mm3 (0.00-0.00); Immature Granulocyte Percent A 0.5 % (0.0-0.0); Lymphocytes Absolute Auto 1.27 K/mm3 (1.10-4.50); Lymphocytes Percent Auto 15.2 % (18.0-42.0); Mean Corpuscular HGB Conc 35.7 g/dL (32-36); Mean Corpuscular Hemoglobin 33.7 pg (27.0-31.0); Mean Corpuscular Volume 94.4 fL (78.0-102.0); Mean Platelet Volume 9.4 fl (8.7-11.0); Monocytes Absolute Auto 0.94 K/mm3 (0.10-0.90); Monocytes Percent Auto 11.2 % (2.0-11.0); Neutrophils Absolute Auto 6.01 K/mm3 (1.70-7.20); Neutrophils Percent Auto 71.8 % (50.0-70.0); Platelet Count Result 212 K/mm3 (150-420); Red Blood Count 4.27 M/mm3 (4.70-6.10); Red Cell Distribution Width 11.7 % (11.6-14.4); White Blood Count 8.4 K/mm3 (4.8-10.8)
[2024-10-13 17:20] LABS: Alanine Aminotransferase 26 U/L (16-63); Albumin Level 3.9 g/dL (3.4-5.0); Alkaline Phosphatase 78 U/L (46-116); Anion Gap 12 mmol/L (4-12); Aspartate Amino Transferase 21 U/L (15-37); Bilirubin,Total 0.9 mg/dL (0.00-1.00); Blood Urea Nitrogen 11 mg/dL (7-18); Calcium 8.9 mg/dL (8.5-10.1); Carbon Dioxide 27 mmol/L (21-32); Chloride 97 mmol/L (98-108); Estimated Glomerular Filt Rate > 60; Glucose 100 mg/dL (70-99); Osmolality Calculated 281 mOsm/kg (285-295); Prostate Specific Antigen 4.3 ng/mL (< OR = 4.0); Sodium 136 mmol/L (136-145); Total Protein 7.1 g/dL (6.4-8.2)
== END 2024-10-13 16:04 | disposition home or self-care (01) ==
PROVIDERS: PCP Family Medicine; Visit Provider Family Medicine
DX: M16.12 Unilateral primary osteoarthritis, left hip (principal); M43.06 Spondylolysis, lumbar region; R39.198 Other difficulties with micturition; R39.11 Hesitancy of micturition
CPT/HCPCS: 36415; 72100; 73502; 80053; 84153; 85025

== ENCOUNTER 2024-11-17 12:10 | Outpatient (CLI) | payer MEDICARE, SELFPAY ==
--- NOTE | ~2024-11-17 | XR_ITS ---
EXAMINATION: XR_CERV2-3V_CR DATE: 11/17/2024 12:26 INDICATION: Cervical spinal fusion. TECHNIQUE: 3 views of cervical spine were obtained. COMPARISON: Cervical spine radiographs 02/16/2024, CT 09/20/2022 FINDINGS: There is 6 degrees levocurvature of cervicothoracic spine. There is 2 mm retrolisthesis of C5 on C6 and C6 on C7. There is kyphosis of cervical spine. There are changes of anterior fusion proc edure at C5-C6 with interbody device and anterior plate and screws. Vertebral body heights are normal . There is severely decreased disc height at C6-C7. There is multilevel facet joint osteoarthritis, s evere on the left at C3-C4, on the right at C4-C5, and bilaterally at C7-T1. There is mild central ca nal stenosis at C6-C7. No prevertebral soft tissue swelling. IMPRESSION: 1. Severe cervical spondylosis. 2. Anterior fusion procedure at C5-C6. Reviewed, dictated and finalized at location B. SDET
--- OUTSIDE RECORDS SUMMARY | 2024-11-17 12:15 | XMS_ITS | Clinical Summary ---
Author Organization [facility] Address [address] [place] [address]. [place], [place] [id number] [place] [id number] Care Team Providers Care Detective Investigator Name Role Phone Manuelito Sweeney MD Primary Care Provider [phone] Social History Tobacco Use Types Packs/Day Years Used Date Smoking Tobacco: Never Assessed Sex and Gender Information Value Date Recorded Sex Assigned at Not on file Legal Sex Male 10:50 AM CDT Gender Identity Not on file Sexual Orientation Not on file Plan of Treatment Health Maintenance Due Date Last Done Comments Colorectal Cancer Screening Colonoscopy (10 Years) 1955 Hepatitis C 1974 DTaP, Tdap and Td Vaccines ( 1 - Tdap) 1975 Zoster Vaccines (1 of 2) 2006 Pneumococcal Vaccine: 65+ Ye ars (1 of 1 - PCV) 2021 COVID-19 Vaccine ( - 2023-2 5 season) 2024 Influenza Adult (#1) 2024 RSV Immunization or 60+ Years (1 - 1-dose 75+ series) 2031 Meningococcal Vaccine Aged Out No zheng may eligible based on patient's age to complete this topic RSV Immunizations Under 20 Months Aged Out No longer eligible based on patient's age to complete this topic Insurance [facility] Care Teams Detective Investigator Relationship Specialty Start Date End Date Manuelito Sweeney MD [address] [place] [address] PCP - General FAMILY PRACTICE 07/06/19
== END 2024-11-17 12:11 | disposition home or self-care (01) ==
LOC: CHSIMG 12:13
PROVIDERS: PCP Family Medicine; Visit Provider Neurological Surgery
DX: Z98.1 Arthrodesis status (principal); M43.02 Spondylolysis, cervical region
CPT/HCPCS: 72040

== ENCOUNTER 2024-12-01 10:59 | Outpatient (RCR) | payer MEDICARE, SELFPAY ==
--- NOTE | 2024-12-14 08:26 | OPREHPOC ---
Outpatient Therapy Plan of Care This is a Multidisciplinary Plan of Care that may contain components documented by all disciplines (PT, OT, and ST.) PT Problem 1 PT Problem #1 Knowledge Deficit PT Goal 1 Goal / Goal Update 1. independent and compliant with HEP Target Visit 5 PT Problem 2 PT Problem #2 Pain PT Goal 1 Goal / Goal Update 1. 2/10 or less pain at worst in the lower back in the last 2 weeks. Target Visit 10 PT Problem 3 PT Problem #3 Impaired Range of Motion PT Goal 1 Goal / Goal Update 1. improve active lumbar flexion to ankles pain free 2. improve active lumbar extension to 20 degrees pain free 3. improve bilateral active lumbar side bending to 40 degrees pain free Target Visit 10 PT Problem 4 PT Problem #4 Impaired Strength PT Goal 1 Goal / Goal Update 1. improve core strength to 4/5 or better 2. improve bilateral hip strength to 4+/5 or better Target Visit 10 PT Problem 5 PT Problem #5 Impaired Functional Mobility PT Goal 1 Goal / Goal Update 1. oswestry to display 10% or less functional deficits 2. patient to ambulate 15 minutes in therapy without increased pain, leg weakness, or needing to stop 3. patient to safely lift 30lbs from floor to waist with good body mechanics and no increased pain 4. patient to return to all personal care without limitations Target Visit 10
--- NOTE | 2024-12-14 08:26 | PTOPEVAL1 ---
Assessment and note entered by JT File, PT Evaluation Information Assessment Status Evaluation ICD-10 Condition Codes (PT) Pain in low back M54.50 Onset 10/17/24 Subjective Information patient reports he is having pain in his lower back, and weakness in his legs with prolonged walking. he reports standing and sitting do no bother him much, but when he has to do a lot of walking his legs will get weak. he reports this has been progressively getting worse for some time , but reports he has noticed a greater change analyst the last few months. Reported Pain Level Pain Score Mild Pain: Jigar Gant Assessment PT Clinical Summary mr. spencer is a 69 yo man who presents to skilled PT services for evaluation and treatment of lower back pain. he presents today with signs and symptoms consistent with lumbar spondylosis. he displays decreased lumbar rom, decreased core strength, weak proximal mm strength, and deficits in functional activity performance (especially prolonged walking). continued skilled PT is indicated to improve his objective/functional deficits and return to his prior level functional activity performance/quality of life. Plan of Care Interventions Electrical Stimulation,Hot Pack/Cold Pack,Manual Therapy,Mechanical Traction,Neuro Re-education, Patient/Caregiver Education,Therapeutic Activities ,Therapeutic Exercise PT Services Indicated Yes Treatment Frequency and 2x weekly for 10 visits Duration These treatments will address the objective and functional deficits as defined above. The patient will be advanced safely and appropriately in order for the patient to progress towards his/her prior level of function. Additional exercises will be introduced and as well as a comprehensive home exercise program upon discharge, if needed, ?to ensure carryover of functional gains achieved in the clinic. This treatment plan has been reviewed and agreement upon by the patient.
--- NOTE | 2025-01-08 09:52 | PTOPDC ---
Assessment and note entered by Lux Prado Evaluation Information Assessment Status Discharge ICD-10 Condition Codes (PT) Pain in low back M54.50 Onset 10/17/24 Subjective Information Pt. reports he is doing much better. He reports pain in the back is minimal and rarely present. He states that knee pain seems to be his biggest issue at this time. He states that he has been focused more on mechanics with lifting. Reported Pain Level Pain Score 0: Self Report Assessment PT Clinical Summary Pt. has met all goals established at the initial evaluation. He is encouraged to continue with his HEP and will be discharged from our care at this time. Plan of Care PT Services Indicated No
== END 2025-01-08 20:00 | disposition home or self-care (01) ==
LOC: CHSPT 10:59
PROVIDERS: Visit Provider Family Medicine
DX: M54.50 Low back pain, unspecified (principal)
CPT/HCPCS: 97110; 97112; 97150; 97161; 97530

== ENCOUNTER 2024-12-07 12:13 | Outpatient (CLI) | payer MEDICARE, SELFPAY ==
--- NOTE | ~2024-12-07 | XR_ITS ---
HISTORY: Chest Pain COMPARISON: None TECHNIQUE: 3 views of the bilateral ribs were performed along with a PA and lateral view of the chest FINDINGS: No acute displaced rib fracture is appreciated. The adjacent lungs are unremarkable. Bone mineralization is age-appropriate. The cardiomediastinal silhouette is unremarkable. The lung is clear IMPRESSION: No acute displaced rib fracture. The lungs are clear Reviewed, dictated and finalized at location A. STER OR DAMAGE CONTROL SPECIALIST
--- OUTSIDE RECORDS SUMMARY | 2024-12-07 12:19 | XMS_ITS | Clinical Summary ---
Author Organization [facility] Address [address] [place] [address] Care Team Providers Care Development Planner Name Role Phone Manuelito Sweeney MD Primary Care Provider [phone] Social History Tobacco Use Types Packs/Day Years [...] of 1 - PCV) 2021 COVID-19 Vaccine (1 - 2023-2 5 season) 2024 Influenza Adult (#1) 2024 RSV Immunization or 60+ Years (1 - 1-dose 75+ series) 2031 Meningococcal B Vaccine Aged Out No l onger eligible based on patient's age to complete this topic Meningococcal Vaccine Aged Out No zheng may eligible based on patient's age to complete this topic RSV Immunizations Under 20 Months Aged Out No longer eligible based on patient's age to complete this topic Insurance [facility] Care Teams Development Planner Relationship Specialty Start Date End Date Manuelito Sweeney MD [address] [place], [place] [id number] PCP - General FAMILY PRACTICE 07/06/19
== END 2024-12-07 12:14 | disposition home or self-care (01) ==
LOC: CHSIMG 12:14
PROVIDERS: PCP Family Medicine; Visit Provider Family Medicine
DX: R07.89 Other chest pain (principal)
CPT/HCPCS: 71046; 71110

== ENCOUNTER 2025-03-07 07:41 | Outpatient (CLI) | payer MEDICARE, SELFPAY ==
--- NOTE | ~2025-03-07 | XR_ITS ---
Cervical Spine: AP, lateral, open-mouth views Clinical History: Postoperative COMPARISON: 11/17/2024 Findings: No acute fracture seen. There is 5 mm anterolisthesis of C3 over C4. There is anterior inte rbody fusion from C5 to C6, the C6 screws appear to be within the C6 and C6 disc space present within the vertebral body. Alignment is essentially stable from prior exam. Moderate to advanced facet arth ropathy throughout the cervical spine is unchanged. Pre-vertebral soft tissues are unremarkable. Impression: Anterior and interbody fusion hardware at C5-C6, as above. Possible malpositioning or loosening of th e hardware, with the inferior screw apparently with more within the C6-C7 disc space rather than with in the C6 vertebral body.. Alignment is similar to prior exam. 5 mm anterolisthesis of C3 over C4. Additional degenerative change, as above. Reviewed, dictated and finalized at [facility]. Impression: Anterior and interbody fusion hardware at C5-C6, as above. Possible malposition ing or loosening of the hardware, with the inferior screw apparently with more within the C6-C7 disc space rather than within the C6 vertebral body.. Alignmen t is similar to prior exam. 5 mm anterolisthesis of C3 over C4. Additional degenerative change, as above.
--- OUTSIDE RECORDS SUMMARY | 2025-03-07 07:46 | XMS_ITS | Clinical Summary ---
Author Organization [facility] Address [address] [place] [id number] Care Team Providers Care Personal Computer Specialist Name Role Phone Manuelito Sweeney MD Primary Care Provider [phone] Social History Tobacco Use Types Packs/Day Years [...] Td Vaccines ( 1 - Tdap) 1975 Pneumococcal Vaccine: 50+ Ye ars (1 of 1 - PCV) 2006 Zoster Vaccines (1 of 2) 2006 COVID-19 Vaccine ( - 2023-2 5 season) 2024 RSV Immunization or 60+ Years (1 [...] patient's age to complete this topic Insurance [facility] Care Teams Personal Computer Specialist Relationship Specialty Start Date End Date Manuelito Sweeney MD [address] [place] [address] PCP - General FAMILY PRACTICE 07/06/19
== END 2025-03-07 07:42 | disposition home or self-care (01) ==
LOC: CHSIMG 07:44
PROVIDERS: PCP Family Medicine; Visit Provider Neurological Surgery
DX: M48.02 Spinal stenosis, cervical region (principal); Z98.1 Arthrodesis status; M43.12 Spondylolisthesis, cervical region
CPT/HCPCS: 72040

== ENCOUNTER 2025-05-25 12:20 | Outpatient (CLI) | payer MEDICARE, SELFPAY ==
--- NOTE | ~2025-05-25 | US_ITS ---
US soft tissue abdomen 05/25/2025 12:40 Indication: Umbilical hernia Procedure: Targeted soft tissue ultrasound. Umbilical region Comparison: No prior studies for comparison. Findings: There is a 1.2 cm defect in the deep fascia in the periumbilical region. Within this defect there is hypoechoic soft tissue which traverses the fascial plane. No evidence of internal vasculari ty or motility of the soft tissue during dynamic imaging. No definitive bowel loops or omentum are vi sualized within the defect. Surrounding subcutaneous tissues are unremarkable with no evidence of shona ma or fluid collection. Impression: 1: Periumbilical fascial defect measuring 1.2 cm, containing nonmobile hypoechoic soft tissue, withou t signs of herniated bowel or active fat motion. Differential diagnosis includes small ventral hernia possibly containing preperitoneal fat or fibrous tissue, fibrous scar tissue, desmoid tumor and less likely soft tissue neoplasm. Clinically correlate for palpable findings and symptomatology. If bart rn persist or if symptoms increase recommend surgical consultation. Reviewed, dictated and finalized at location A. Impression: 1: Periumbilical fascial defect measuring 1.2 cm, containing nonmobile hypoecho ic soft tissue, without signs of herniated bowel or active fat motion. Differen tial diagnosis includes small ventral hernia possibly containing preperitoneal fat or fibrous tissue, fibrous scar tissue, desmoid tumor and less likely soft tissue neoplasm. Clinically correlate for palpable findings and symptomatology. If concern persist or if symptoms increase recommend surgical consultation.
--- NOTE | ~2025-05-25 | XR_ITS ---
XR hand RT min 3V 05/25/2025 12:44 Indication: Right hand pain Procedure: 3 views right hand Comparison: Comparison to multiple prior studies sequentially, with oldest reviewed study dated 01/19. Findings: Osteopenia. There is moderate-severe polyarticular osteoarthritis of the right hand and wri st including the triscaphe and first carpal metacarpal joints. No acute fracture, subluxation or disl ocation. No foreign bodies. Impression: 1: Moderate-severe polyarticular osteoarthritis. Reviewed, dictated and finalized at location A. Impression: 1: Moderate-severe polyarticular osteoarthritis.
== END 2025-05-25 12:21 | disposition home or self-care (01) ==
PROVIDERS: PCP Family Medicine; Visit Provider Family Medicine
DX: M79.643 Pain in unspecified hand (principal); K42.9 Umbilical hernia without obstruction or gangrene; M19.041 Primary osteoarthritis, right hand
CPT/HCPCS: 73130; 76705

== ENCOUNTER 2025-08-20 00:52 | Day surgery (SDC) | payer MEDICARE, SELFPAY ==
--- NOTE | 2025-08-13 13:15 | PC.NURSE ---
[facility] has started construction of its new state of the art ER which will open Spring 2026. With this, we anticipate parking may be a challenge for some our surgical patients and families. Parking spaces are limited but are available for all Surgical, obstetrics, and ER patients sharing this lot. If you arrive and find you are having a hard time finding a parking space, please note that we understand the challenges, please drive around the hospital and park near Hospital Entrance 1. When you enter this entrance, you can ask a volunteer to direct or take you back to the surgical waiting area to check in. We appreciate everyone?s understanding of these expected challenges while we build for your future. Report to the Outpatient Waiting Room, entrance under the green pavilion located off [address], at time _6 AM on date _08/20/25 . Planned Procedure Time: __7:30 AM .? Time changes happen often and if your time is changed the preop area will call you the afternoon before. - You and your visitor will be asked to self-screen and do not enter if you have any COVID symptoms. Please call surgeon if you need to reschedule. - A mask is optional within the hospital at this time. Patients may have clear liquids (water, carbonated beverages, clear teas, apple juice) until 3 hours prior to surgery( 4:30 AM with a maximum of 20 ounces. - No food from midnight until time of surgery and no smoking, or chewing tobacco (or any form of nicotine). No chewing gum, candy or mints. Take only the following medications with a SIP of water on the morning of surgery: NONE DO NOT STOP ANY OF YOUR OTHER PRESCRIPTION MEDICATIONS PRIOR TO SURGERY EXCEPT THE FOLLOWING Hold all vitamins and supplements for 3 days per anesthesiologist. Medications to discontinue per physician NONE Date to take last dose Please no make-up, nail urdu, hairspray, perfume, deodorant, or body powder the day of surgery.? No jewelry (including any body piercings) or valuables the day of surgery, leave them at home.? Please take a shower or bath the night before, or the morning of, surgery with an antibacterial soap.? Wear comfortable, loose fitting clothing.? Children are encouraged to wear pajamas. - Jewelry must be removed prior to entering the operating room.? Rings and piercings that are not removed may be cut off. - The hospital will not accept responsibility for valuables.? - Please leave all valuables, including medications, at home the day of surgery. If you are going home after surgery, a licensed livery car driver must drive you home.? - NO public transportation without another adult if you receive anesthesia. - We recommend that an adult stay with you for 24 hours following discharge. - We also recommend that you do not drive, make important decision, drink alcoholic beverages, or take any drugs that were not prescribed by your health care provider for at least 24 hours after your discharge time. For Pediatric surgeries, we recommend two adults accompany the child home. Follow any additional instructions given to you from your surgeon. Telephone instructions given to ___PATIENT and asked if any additional questions and then verbalized understanding. Patient advised to call surgeon office or pre surgery nurse liaison [phone] if any additional questions.
[2025-08-13 13:31] VITALS: BMI 26.8
[2025-08-20] VITALS (9 sets, daily range): BP systolic 115–149; BP diastolic 71–89; PULSE 48–57; RESP 12–18; TEMP 36.1–36.3; O2SAT 95–99; BMI 27.2
--- OUTSIDE RECORDS SUMMARY | 2025-08-20 00:55 | XMS_ITS | Clinical Summary ---
Author Organization [facility] Address [address] [place] [id number] Care Team Providers Care Assessor Name Role Phone Manuelito Sweeney MD Primary Care Provider [phone] Social History Tobacco Use Types Packs/Day Years [...] of 2) 2006 COVID-19 Vaccine ( - 2024-2 6 season) 2025 Influenza Adult (#1) 2025 RSV Immunization or 60+ Years (1 - 1-dose 75+ series) 2031 Hepatitis A Vaccines Aged Out No long er eligible based on patient's age to complete this topic Meningococcal B Vaccine Aged Out No l onger eligible based on patient's age to complete this topic Meningococcal Vaccine Aged Out No zheng may eligible based on patient's age to complete this topic RSV Immunizations Under 20 Months Aged Out No longer eligible based on patient's age to complete this topic Insurance [facility] Member Subscriber Plan / Payer (Ef fective 2019-Present) Name:Chong Boswell Relation to Subscriber:Self Name:Chong Boswell Payer ID:[id number] (NAIC) Group ID:Not on file Type:Not on file Address: [address] Member Subscriber Plan / Payer (Ef fective for All Dates) Name:Chong Boswell Relation to Subscriber:Self Name:Chong Boswell Payer ID:[id number] (NAIC) Group ID:Not on file Type:Not on file Address: [place] [id number] Care Teams Assessor Relationship Specialty Start Date End Date Manuelito Sweeney MD [address] [place], [place] [id number] PCP - General FAMILY PRACTICE 07/06/19
--- NOTE | 2025-08-20 05:51 | ECG_ITS ---
Test Date: 2025-08-20 07:04:31 Measurements Intervals [place] Rate: 51 P: 64 [place]: 235 QRS: -11 QRSD: 100 T: 47 QT: 454 QTc: 419 Interpretive Statements SINUS BRADYCARDIA WITH FIRST DEGREE AV BLOCK INCOMPLETE RIGHT BUNDLE BRANCH BLOCK BORDERLINE ECG Compared to ECG 06/28/2024 10:37:36 HEART RATE HAS DECREASED First degree AV block now present Electronically Signed On 08-20-2025 07:45:15 CDT by Shree Paula D.O.
[2025-08-20] MEDS: LACTATED RINGERS 1,000 ML 30 ML IV CONT ×2 (06:35→08:31)
[2025-08-20] MEDS: KETOROLAC 15 MG/ML VIAL (*BKC) IV PUSH (06:37)
[2025-08-20] MEDS: ACETAMINOPHEN 500 MG TABLET 1000 MG PO (06:37)
--- NOTE | 2025-08-20 07:11 | PM.IMHP ---
H&P: HPI History of Present Illness Date/Time: 08/20/25 07:11 Chief Complaint: Incisional hernia Narrative: Chong is a 69 y/o male who presents to the office at the request of Manuelito Sweeney MD for an evaluation of a periumbilical mass. Patient reports he first noticed bulging at the umbilicus approximately 2 years ago that has increased in size. He denies pain and states he is tolerating a normal diet and having regular BM's. He has history of colon resection 20+ years ago. Patient had abdominal US done 05/31/25 which showed Periumbilical fascial defect measuring 1.2 cm, containing nonmobile hypoechoic soft tissue, without signs of herniated bowel or active fat motion. Differential diagnosis includes small ventral hernia possibly containing preperitoneal fat or fibrous tissue, fibrous scar tissue, desmoid tumor and less likely soft tissue neoplasm. Clinically correlate for palpable findings and symptomatology. If concern persist or if symptoms increase recommend surgical consultation Review of Systems Review of Systems: All systems reviewed & are unremarkable except as noted in HPI and below PMFSH Past Medical History Medical History ETOH abuse HTN (hypertension) History of MRSA infection Osteoarthritis of CMC joint of thumb Surgical History Surgical History H/O neck surgery (~2023) H/O hand surgery Bilateral CMC arthroplasties Social History Social History Smoking packs per day: 3 Smoking cigarettes per day: 60.0 Years smoked: 33 Smoking pack-years: 99.00 Smoking status: Never smoker Alcohol intake: current Drinks per week: 60 Alcohol use details: pt states daily drinking Substance use: current Substance use type: marijuana Other substance usage details: daily Lack of Transportation: No Lack of Food: Never True Current Housing: Decline to Answer Concerned About Future Housing: Decline to Answer Difficulty Paying Gas/Electric Bills: Decline to Answer Difficulty Paying for Meds: Decline to Answer Currently Unemployed: Decline to Answer Education: Decline to Answer Difficulty w/ Childcare or Family Care: Decline to Answer Living arrangements: with family Occupation/Education: occupation Additional occupation/education comments: [employer] Gender identity (if verbalized by the patient): Male Spiritual care concerns: No Meds Home Medications and Allergies Home Medications ?Medication ?Instructions ?Recorded ?Confirmed ?Type omeprazole 20 mg capsule,delayed 20 mg PO DAILY 06/02/22 08/13/25 History release allopurinol 100 mg tablet 100 mg PO DAILY 09/20/22 08/13/25 History naproxen 500 mg tablet 500 mg PO BID 07/18/25 08/13/25 History tadalafil 20 mg tablet 20 mg PO PRN PRN sexual activity 07/18/25 08/13/25 History valsartan 160 mg tablet 160 mg PO DAILY 07/18/25 08/13/25 History verapamil 120 mg tablet,extended 120 mg PO HS 07/18/25 08/13/25 History release Allergies Allergy/AdvReac Type Severity Reaction Status Date / Time No Known Allergies Allergy Unknown Verified 08/20/25 06:41 Vital Signs Vital Signs - 24 hr 08/20/25 06:00 Temperature 36.1 C L Pulse Rate 57 L Respiratory Rate 16 Blood Pressure 133/84 Pulse Oximetry 99 Oxygen Delivery Room Air Exam Const: General: cooperative, comfortable and no acute distress Resp: Auscultation: clear to auscultation bilaterally Cardio: Rate: regular rate Rhythm: regular rhythm GI: Inspection: normal to inspection and non-distended GI Palp: Yes abdominal tenderness, Yes Soft to palpation, No Guarding due to palpation present (GI) and Yes Hernia present Other: periumbilical incisional hernia measuring approximately 2 cm, incarcerated fat noted within the hernia Assessment and Plan Assessment and plan (1) Incarcerated incisional hernia: Code(s): K43.0 - Incisional hernia with obstruction, without gangrene Status: Acute Assessment and Plan: will set up for repair with mesh, given smoking history will place small piece of mesh to reinforce repair
--- NOTE | 2025-08-20 07:12 | WPDANESEPPF ---
Anes - Initial Pre Proc Eval Procedure: Operation Date: 08/20/25 07:30 Proposed Procedures p Open Incisional Hernia Repair, Possible Mesh - Amie Rivera MD Date/Time: 08/20/25 07:12 Surgeon: Amie Rivera MD Pre Op Diagnosis: incisional hernia Patient Data Age: 70 Gender: M Height: 1.78 m Weight: 86.2 kg Last Vital Signs Temp 36.1 C L 08/20/25 06:00 Pulse 57 L 08/20/25 06:00 Resp 16 08/20/25 06:00 BP 133/84 08/20/25 06:00 Pulse Ox 99 08/20/25 06:00 O2 Del Method Room Air 08/20/25 06:00 Allergies Allergy/AdvReac Type Severity Reaction Status Date / Time No Known Allergies Allergy Unknown Verified 08/20/25 06:41 Home Medications ?Medication ?Instructions ?Recorded ?Confirmed ?Type omeprazole 20 mg capsule,delayed 20 mg PO DAILY 06/02/22 08/13/25 History release allopurinol 100 mg tablet 100 mg PO DAILY 09/20/22 08/13/25 History naproxen 500 mg tablet 500 mg PO BID 07/18/25 08/13/25 History tadalafil 20 mg tablet 20 mg PO PRN PRN sexual activity 07/18/25 08/13/25 History valsartan 160 mg tablet 160 mg PO DAILY 07/18/25 08/13/25 History verapamil 120 mg tablet,extended 120 mg PO HS 07/18/25 08/13/25 History release Patient hx anesthesia problems: none Family hx anesthesia problems: none Results Review: All pre-operative results and documents have been reviewed as part of the pre-operative evaluation. [facility] Past Medical History Medical History ETOH abuse HTN (hypertension) History of MRSA infection Osteoarthritis of CMC joint of thumb Surgical History Surgical History H/O neck surgery (~2023) H/O hand surgery Bilateral CMC arthroplasties Social History Social History Smoking packs per day: 3 Smoking cigarettes per day: 60.0 Years smoked: 33 Smoking pack-years: 99.00 Smoking status: Never smoker Alcohol intake: current Drinks per week: 60 Alcohol use details: pt states daily drinking Substance use: current Substance use type: marijuana Other substance usage details: daily Lack of Transportation: No Lack of Food: Never True Current Housing: Decline to Answer Concerned About Future Housing: Decline to Answer Difficulty Paying Gas/Electric Bills: Decline to Answer Difficulty Paying for Meds: Decline to Answer Currently Unemployed: Decline to Answer Education: Decline to Answer Difficulty w/ Childcare or Family Care: Decline to Answer Living arrangements: with family Occupation/Education: occupation Additional occupation/education comments: [employer] Gender identity (if verbalized by the patient): Male Spiritual care concerns: No Anes - Eval Final PreProcedure Day of Procedure 08/20/25 07:12 Patient weight: overweight Heart: regular rate and rhythm Lungs: clear to auscultation Airway: Mallampati scale class II Neurological: alert and oriented Last oral intake: >/= 8 hours ASA classification: III Emergent: no Anesthetic plan: proceed Anesthesia type and monitoring: general LMA and standard monitoring Results Review: All pre-operative results and documents have been reviewed as part of the pre-operative evaluation. Informed Consent: The patient's anesthetic plan and its attendant risks and benefits were discussed with the patient/family/POA. Questions were solicited and answers provided to the satisfaction of the patient/family/POA.
--- NOTE | 2025-08-20 07:14 | P.PNAN_ITS ---
Anes - Eval Final PreProcedure Day of Procedure 08/20/25 07:14 Patient weight: overweight Heart: regular rate and rhythm Lungs: decreased breath sounds Airway: Mallampati scale class II Neurological: alert and oriented Last oral intake: >/= 8 hours ASA classification: III Emergent: no Anesthetic plan: proceed Anesthesia type and monitoring: general ETT and standard monitoring Results Review: All pre-operative results and documents have been reviewed as part of the pre- operative evaluation. Informed Consent: The patient's anesthetic plan and its attendant risks and benefits were discussed with the patient/family/POA. Questions were solicited and answers provided to the satisfaction of the patient/family/POA.
--- NOTE | 2025-08-20 07:14 | WPDHPUPDATE1 ---
History and Physical Update Update Date/Time: 08/20/25 07:14 History and Physical has been reviewed, including an updated exam of the patient. There are NO changes in the patient's condition. Risks, benefits, and alternatives have been discussed and questions answered. Patient agrees to proceed with procedure.
[2025-08-20] MEDS: ceFAZolin 2 GM in SODIUM CHLORIDE 0.9% IV 50 ML 100 ML IVPB (07:28)
[2025-08-20] MEDS: BUPIVACAINE/EPINEPHRINE 0.5% 50 ML VIAL 30 ML INFILTRATE (07:36)
--- NOTE | 2025-08-20 08:16 | W.PM.PROC2 ---
Procedure Note - Detailed Date of Procedure 08/20/25 Pre-op Diagnosis incarcerated incisional hernia Post-op Diagnosis Same Procedure Performed repair of incarcerated incisional hernia with defect measuring 3 cm Surgeon Amie Rivera MD Computer Equipment Repairer [place] Anesthesia General and Local Indications 70-year-old male presenting to the office with a periumbilical incisional hernia. Patient previous colectomy approximately 20 years ago and a lower midline incision. He reports he has known about this hernia for years but more recently becoming larger and more symptomatic Findings incarcerated periumbilical incisional hernia with defect measuring 3 cm, incarcerated contents preperitoneal fat Description of Procedure The patient was taken to the operating room placed in the supine position. After adequate induction of general anesthesia, the patient was prepped and draped in the normal sterile fashion. A time-out was then done to verify the patient's identity, as well as the procedure being performed. I began by localizing the area around the umbilicus. I then made a curvilinear incision in the infraumbilical fold. This was taken down to level fascia. I then was able to bluntly dissect around the umbilicus. I then carefully dissected the umbilicus off the underlying fascia. I then noted a 3 cm defect with incarcerated preperitoneal fat. I was able to mobilize the incarcerated tissue and reduce it back into the abdominal cavity. This left an approximately 3 cm defect. I then placed a 4.6 cm round piece of ventralex mesh in the underlay position. This was noted to have good, wide local coverage of the defect. I then closed this defect primarily with interrupted 0 Ethibond suture over the underlay mesh repair. I then reapproximated the umbilicus to the fascia with a 3 0 Vicryl U-stitch. The subcutaneous tissue was then closed with 3 0 Vicryl suture. The skin was closed with 4 0 Monocryl subcuticular suture. Dermabond was then placed on the wound. The patient tolerated the procedure well was extubated in the operating room postop. He will be transferred to the recovery room in stable condition. Implants 4.6 cm ventralex mesh in underlay position Estimated Blood Loss 5 Drains No Packing No Pathology None sent Complications No immediate complications Condition Stable Disposition PACU [facility] Billing Surgery - Charge Forward: Surgery Billing
== END 2025-08-20 10:35 | disposition home or self-care (01) ==
PROVIDERS: PCP Family Medicine; Visit Provider Surgery
PROC: 0WQF0ZZ Repair Abdominal Wall, Open Approach (ICD-10-PCS; CPT 49594; principal; 2025-08-20 07:30)
DX: K43.0 Incisional hernia with obstruction, without gangrene (principal); I10 Essential (primary) hypertension; I45.10 Unspecified right bundle-branch block; M18.10 Unilateral primary osteoarthritis of first carpometacarpal joint, unspecified hand; F12.90 Cannabis use, unspecified, uncomplicated; Z79.1 Long term (current) use of non-steroidal anti-inflammatories (NSAID); Z98.890 Other specified postprocedural states; Z98.1 Arthrodesis status; Z87.891 Personal history of nicotine dependence
CPT/HCPCS: 49594; 93005; J0690; A9270; C1781; J1100; J1885; J2405; J2704; J3010; J7120